=== PATIENT | female | born 1990 | race Caucasian/White ===

== ENCOUNTER 2023-12-03 16:10 | Outpatient (CLI) | payer BC ==
--- NOTE | 2023-12-03 17:08 | XRAY Report ---
PROCEDURE: Shoulder 2+V RT INDICATIONS: RIGHT SHOULDER PAIN TECHNIQUE: 3 views of the shoulder were acquired. COMPARISON: None. FINDINGS: Bones: No fractures or dislocations. No suspicious bony lesions. Visualized ribs appear intact. Soft tissues: No suspicious soft tissue calcifications. The visualized lungs are within normal limi ts. IMPRESSION: No acute bony abnormality. Reviewed by: Davis Bourgeois MD on 12/03/2023 5:07 PM PDT Approved by: Davis Bourgeois MD on 12/03/2023 5:07 PM PDT Station ID: [id number]
== END 2023-12-03 16:11 | disposition home or self-care (01) ==
LOC: DI 16:10
PROVIDERS: ATTEND Nurse Practitioner Family
DX: M25.511 Pain in right shoulder (principal)

== ENCOUNTER 2024-03-23 12:58 | Outpatient (CLI) | payer BC ==
--- NOTE | 2024-03-23 18:06 | XRAY Report ---
PROCEDURE: Foot 1-2V RT INDICATIONS: RIGHT FOOT PAIN TECHNIQUE: 2 views of the foot were acquired. COMPARISON: None. FINDINGS: Bones: No fractures or dislocations. No suspicious bony lesions. Plantar calcaneal enthesophyte. Soft tissues: No tibiotalar joint effusion. Achilles tendon appears normal. IMPRESSION: No acute bony abnormality. Reviewed by: Saad Kelly MD on 03/23/2024 5:05 PM [facility] Approved by: Saad Kelly MD on 03/23/2024 5:05 PM [facility] Station ID: [id number]
== END 2024-03-23 12:59 | disposition home or self-care (01) ==
LOC: DI 12:58
PROVIDERS: ATTEND Nurse Practitioner Family
DX: M79.671 Pain in right foot (principal)